=== PATIENT | female | born 1985 | race Caucasian/White ===

== ENCOUNTER 2023-05-31 12:58 | Emergency (ER) | payer BC ==
[~2023-05-31] VITALS: Ht 154.9 cm; Wt 68.2 kg
[2023-05-31 13:08] VITALS: TEMP 98.3
[2023-05-31] MEDS ORDERED: LR 1,000 ML IV ONE (13:30)
[2023-05-31] MEDS ORDERED: Ondansetron 4 MG/2 ML VIAL IV ONE (13:30)
[2023-05-31 13:31] LABS: BASO # 0.1 K/mm3 (0.0-0.2); BASO % 0.5 % (0.0-2.0); EOS # 0.4 K/mm3 (0.0-0.7); GRAN # 7.9 K/mm3 (1.4-6.5); GRAN % 61.4 % (42.2-75.2); HEMATOCRIT 43.3 % (37.0-47.0); LYMPH # 3.6 K/mm3 (1.2-3.4); LYMPH % 27.8 % (20.0-51.0); MEAN CELL VOLUME 92 fl (80.0-100.0); MEAN CORPUSCULAR HEMOGLOBIN 32 pg (27-31); MEAN CORPUSCULAR HGB CONC 35 g/dl (33.0-37.0); MEAN PLATELET VOLUME 10.7 fl (7.4-10.4); MONO # 0.9 K/mm3 (0.1-0.6); PLATELET COUNT 333 K/mm3 (130-400); RED BLOOD COUNT 4.72 M/mm3 (4.10-5.30); REDCELL DISTRIBUTION WIDTH-CV 11.8 % (11.5-14.5)
[2023-05-31 13:46] LABS: ALBUMIN 4.1 g/dL (3.5-5.0); BILIRUBIN,TOTAL 0.6 mg/dL (0.2-1.2); CALCIUM 9.4 mg/dL (8.4-10.2); CREATININE, serum 0.84 mg/dL (0.57-1.11); POTASSIUM 3.4 mEq/L (3.5-4.5); TOTAL PROTEIN 7.4 g/dl (6.2-8.1)
[2023-05-31] MEDS ORDERED: Iohexol 300 - 100 ML VIAL IV ONE (14:26)
[2023-05-31] MEDS ORDERED: NS 100 ML IV ONE (14:27)
[2023-05-31 14:54] LABS: COLLECTION METHOD CLEAN CATCH
[2023-05-31 14:57] LABS: URINE APPEARANCE CLEAR (CLEAR/HAZY); URINE BLOOD NEGATIVE (NEGATIVE); URINE COLOR YELLOW (YELLOW); URINE GLUCOSE NEGATIVE (NEGATIVE); URINE KETONE NEGATIVE (NEGATIVE); URINE NITRATE NEGATIVE (NEGATIVE); URINE PROTEIN(semi-quant) NEGATIVE (NEGATIVE); URINE UROBILINOGEN 0.2 E.U/dL (0.2-1.0)
[2023-05-31] MEDS ORDERED: PREDNISONE20 MG PO (15:21)
[2023-05-31] MEDS ORDERED: AMOXICILLIN 8751 TAB PO (15:21)
[2023-05-31] MEDS ORDERED: predniSONE 50 MG,predniSONE 10 MG PO ONE (15:30)
[2023-05-31] MEDS ORDERED: Amoxicillin/Clavulanate K+ 875/125 MG TAB PO ONE (15:30)
[2023-05-31 15:38] VITALS: BP 138/86; PULSE 97
== END 2023-05-31 15:38 | disposition home or self-care (01) ==
LOC: COL.ER 12:58
PROVIDERS: Emergency Medicine
DX: K52.9 Noninfective gastroenteritis and colitis, unspecified (principal)
CPT/HCPCS: J2405; J7120; J7512; Q9967